=== PATIENT | female | born 1995 | race Caucasian/White ===

== ENCOUNTER 2024-08-22 14:19 | Inpatient (IN) | payer MEDICAID ==
[~2024-08-22] VITALS: Ht 165.1 cm; Wt 86.1 kg
[2024-08-22 15:15] LABS: BASOPHILS % (AUTO) 0.3 % (0-1); EOSINOPHILS % (AUTO) 0.1 % (0-6); HEMATOCRIT 36.6 % (35.0-45.0); HEMOGLOBIN 11.4 g/dl (12.0-16.0); LYMPHOCYTES # (AUTO) 1.5 X10'3 (1.1-4.8); LYMPHOCYTES % (AUTO) 17.8 % (21-51); MEAN CORPUSCULAR HEMOGLOBIN 21.7 PG (27.0-31.0); MEAN CORPUSCULAR HGB CONC 31.2 g/dL (33.0-36.5); MEAN CORPUSCULAR VOLUME 69.3 FL (78-98); MEAN PLATELET VOLUME 8.8 FL (7.4-10.4); MONOCYTES # (AUTO) 0.4 X10'3 (0-0.9); MONOCYTES % (AUTO) 5.2 % (2-12); NEUTROPHILS # (AUTO) 6.5 X10'3 (1.8-7.7); NEUTROPHILS % (AUTO) 76.6 % (42-75); PLATELET COUNT 340 X10'3 (140-440); RED BLOOD COUNT 5.28 X10'6 (4.20-5.60); RED CELL DISTRIBUTION WIDTH 30.4 % (11.5-14.5); WHITE BLOOD COUNT 8.4 X10'3 (4.5-11.0)
[2024-08-22 15:34] LABS: ALANINE AMINOTRANSFERASE 23 U/L (12-78); ALBUMIN 2.5 G/DL (3.4-5.0); ALBUMIN/GLOBULIN RATIO 0.5 (1.1-1.5); ALKALINE PHOSPHATASE 117 IU/L (46-116); ANION GAP 12 (8-16); ASPARTATE AMINO TRANSFERASE 20 U/L (10-37); BILIRUBIN,TOTAL 0.5 MG/DL (0.1-1.0); BLOOD UREA NITROGEN 11 MG/DL (7-18); BUN/CREATININE RATIO 14.9 (10.0-20.0); CALCIUM 8.6 MG/DL (8.5-10.1); CHLORIDE 110 MMOL/L (99-107); CREATININE 0.74 MG/DL (0.40-0.90); GLUCOSE 134 MG/DL (70-104); LIPASE 43 U/L (16-77); POTASSIUM 3.7 MMOL/L (3.5-5.1); SODIUM 145 MMOL/L (135-145); THYROID STIMULATING HORMONE 1.09 ulU/ml (0.34-4.50); TOTAL CARBON DIOXIDE 23.3 MMOL/L (24-32); TOTAL PROTEIN 7.2 G/DL (6.4-8.2); eCRCL 100 ML/MIN; eGFR > 90 ML/MIN
[2024-08-22 15:37] LABS: ETHANOL < 10 MG/DL (<10)
[2024-08-22 16:00] LABS: PLATELET ESTIMATE NORMAL
[2024-08-22 16:01] LABS: ANISOCYTOSIS 3+; ELLIPTOCYTES FEW; HYPOCHROMASIA 2+; MICROCYTOSIS 2+; POLYCHROMASIA FEW; SCHISTOCYTES FEW; TEAR DROP CELLS FEW
[2024-08-22 16:07] LABS: BILIRUBIN,URINE NEGATIVE (Neg); CLARITY,URINE SLIGHTLY CLOUDY (Clear); COLOR,URINE YELLOW (Yellow); GLUCOSE, URINE NEGATIVE (Neg); KETONES,URINE NEGATIVE (Neg); LEUKOCYTE ESTERASE ,URINE TRACE (Neg); NITRITES, URINE NEGATIVE (Neg); OCCULT BLOOD,URINE SMALL (Neg); PROTEIN,URINE NEGATIVE (Neg)
[2024-08-22 16:09] LABS: URINE HCG POSITIVE (NEG)
[2024-08-22 16:12] LABS: UA COLLECTION TYPE CLN CATCH MIDSTREAM
[2024-08-22 16:13] LABS: BACTERIA,URINE FEW /HPF (Neg); MUCUS STRANDS NONE SEEN /LPF (Neg); SQUAMOUS EPITHELIAL CELL,UR FEW /LPF (FEW)
[2024-08-22 16:23] LABS: URINE AMPHETAMINE SCREEN NEGATIVE (Neg); URINE BARBITUATE SCREEN NEGATIVE (Neg); URINE BENZODIAZEPINES SCREEN POSITIVE (Neg); URINE CANNABINOID SCREEN NEGATIVE (Neg); URINE COCAINE SCREEN NEGATIVE (Neg); URINE METHADONE SCREEN NEGATIVE (Neg); URINE OPIATE SCREEN NEGATIVE (Neg); URINE PHENCYCLIDINE SCREEN NEGATIVE (Neg)
[2024-08-22] MEDS: cephalexin 250mg capsule PO ONE (17:02)
[2024-08-22] MEDS: nicotine 14mg patch - 24hr TD ONE (17:19)
[2024-08-22] MEDS: ketorolac trometh 15mg/ml vial 15 MG/ML ML IM ONE ×2 (17:20→22:29)
[2024-08-22] MEDS: LORazepam 1 MG tablet PO ONE (18:12)
[2024-08-22] MEDS: cephalexin 250mg capsule PO SCH (21:11)
[2024-08-23] MEDS: acetaminophen 325mg tablet PO STA (03:21)
[2024-08-23] MEDS: diphenhydrAMINE 25mg capsule PO STA (03:21)
[2024-08-23] MEDS: methadone 10mg tablet PO ONE ×2 (08:00→11:46)
[2024-08-23] MEDS: hydrOXYzine 25 MG tablet PO ONE (10:51)
[2024-08-23] MEDS: ketorolac trometh 30MG/ML vial 30 MG/ML VIAL IM ONE (10:52)
[2024-08-23] MEDS: nicotine 21mg patch - 24 hr TD ONE (18:11)
[2024-08-23] MEDS: diphenhydrAMINE 25mg capsule PO ONE (21:40)
[2024-08-23] MEDS: traZODone 50mg tablet PO STA (23:49)
[2024-08-24] MEDS: methadone 10mg tablet PO ONE (08:06)
[2024-08-24] MEDS ORDERED: methadone 10mg tablet PO SCH (08:07)
[2024-08-24 15:00] VITALS: BP 141/92; PULSE 95; RESP 18; TEMP 98.6; O2SAT 98
[2024-08-24 16:29] VITALS: RESP 18; O2SAT 98
[2024-08-24] MEDS ORDERED: loperamide 2mg capsule PO PRN (17:55)
[2024-08-24] MEDS ORDERED: magnesium hydroxide 30ml (MOM) UD suspension PO PRN (17:55)
[2024-08-24] MEDS ORDERED: mag hydrox/Alum hydrox/simeth 30ml oral suspension PO PRN (17:55)
[2024-08-24] MEDS: nicotine 21mg patch - 24 hr TD SCH (19:10)
[2024-08-24] MEDS: NICOTINE POLACRILEX 2 MG LOZENGE BC PRN (19:45)
[2024-08-24 20:00] VITALS: BP 135/89; PULSE 88; RESP 18; TEMP 98.5; O2SAT 99
[2024-08-24] MEDS: traZODone 50mg tablet PO SCH (21:47)
[2024-08-24] MEDS: hydrOXYzine 25 MG tablet PO PRN (21:48)
[2024-08-25 07:00] VITALS: BP 132/85; PULSE 71; RESP 16; TEMP 97.8; O2SAT 96
[2024-08-25] MEDS: methadone 10mg tablet PO SCH (07:32)
[2024-08-25 09:24] LABS: BASOPHILS % (AUTO) 0.5 % (0-1); EOSINOPHILS % (AUTO) 0.1 % (0-6); HEMATOCRIT 32.9 % (35.0-45.0); HEMOGLOBIN 10.1 g/dl (12.0-16.0); LYMPHOCYTES # (AUTO) 1.6 X10'3 (1.1-4.8); LYMPHOCYTES % (AUTO) 31.3 % (21-51); MEAN CORPUSCULAR HEMOGLOBIN 21.8 PG (27.0-31.0); MEAN CORPUSCULAR HGB CONC 30.6 g/dL (33.0-36.5); MEAN CORPUSCULAR VOLUME 71.3 FL (78-98); MONOCYTES # (AUTO) 0.4 X10'3 (0-0.9); MONOCYTES % (AUTO) 7.3 % (2-12); NEUTROPHILS % (AUTO) 60.8 % (42-75); PLATELET COUNT 236 X10'3 (140-440); RED BLOOD COUNT 4.61 X10'6 (4.20-5.60); RED CELL DISTRIBUTION WIDTH 31.8 % (11.5-14.5)
[2024-08-25 09:47] LABS: ALANINE AMINOTRANSFERASE 15 U/L (12-78); ALBUMIN 2.3 G/DL (3.4-5.0); ALBUMIN/GLOBULIN RATIO 0.6 (1.1-1.5); ALKALINE PHOSPHATASE 78 IU/L (46-116); ANION GAP 6 (8-16); ASPARTATE AMINO TRANSFERASE 15 U/L (10-37); BILIRUBIN,TOTAL 0.4 MG/DL (0.1-1.0); BLOOD UREA NITROGEN 17 MG/DL (7-18); BUN/CREATININE RATIO 27.4 (10.0-20.0); CALCIUM 8.2 MG/DL (8.5-10.1); CHLORIDE 110 MMOL/L (99-107); CHOL/HDL RATIO 5.4 (0.00-4.99); CHOLESTEROL 211 MG/DL (0-200); CREATININE 0.62 MG/DL (0.40-0.90); GLUCOSE 78 MG/DL (70-104); HDL CHOLESTEROL 39 MG/DL (35-60); LDL CHOLESTEROL 130 MG/DL (50-100); SODIUM 143 MMOL/L (135-145); THYROID STIMULATING HORMONE 5.03 ulU/ml (0.34-4.50); TOTAL CARBON DIOXIDE 26.6 MMOL/L (24-32); TOTAL PROTEIN 6.2 G/DL (6.4-8.2); TRIGLYCERIDES 174 MG/DL (20-135); eCRCL 119 ML/MIN; eGFR > 90 ML/MIN
[2024-08-25 09:53] LABS: ANISOCYTOSIS 3+; PLATELET ESTIMATE NORMAL
[2024-08-25 09:54] LABS: BURR CELLS FEW; ELLIPTOCYTES FEW; HYPOCHROMASIA 1+; MICROCYTOSIS 1+; TEAR DROP CELLS 1+
[2024-08-25] MEDS: acetaminophen 325mg tablet PO PRN ×2 (13:24→21:18)
[2024-08-25 19:00] VITALS: RESP 16; O2SAT 100
[2024-08-25 20:00] VITALS: BP 139/89; PULSE 101; RESP 16; TEMP 97.6; O2SAT 100
[2024-08-26 07:00] VITALS: BP 136/81; PULSE 68; RESP 16; TEMP 97.8; O2SAT 97
[2024-08-26] MEDS ORDERED: sertraline 25mg tablet PO SCH (08:00)
[2024-08-26] MEDS: sertraline 50mg tablet PO SCH (08:15)
[2024-08-26 11:28] LABS: BILIRUBIN,URINE NEGATIVE (Neg); CLARITY,URINE SLIGHTLY CLOUDY (Clear); COLOR,URINE YELLOW (Yellow); GLUCOSE, URINE NEGATIVE (Neg); KETONES,URINE NEGATIVE (Neg); LEUKOCYTE ESTERASE ,URINE SMALL (Neg); NITRITES, URINE NEGATIVE (Neg); OCCULT BLOOD,URINE LARGE (Neg); PROTEIN,URINE NEGATIVE (Neg); UROBILINOGEN,URINE 0.2 E.U/dL (0.2-1.0)
[2024-08-26 11:29] LABS: UA COLLECTION TYPE NON-SPECIFIED
[2024-08-26 11:33] LABS: MUCUS STRANDS FEW /LPF (Neg); SQUAMOUS EPITHELIAL CELL,UR MANY /LPF (FEW)
[2024-08-26 11:34] LABS: WBC,URINE 20-30 /HPF (0-4)
[2024-08-26 11:35] LABS: AMORPHOUS PHOSPHATES 1+; BACTERIA,URINE 2+ /HPF (Neg); TRANSITIONAL EPI CELLS,URINE FEW /HPF
[2024-08-26] MEDS: LORazepam 1 MG tablet PO ONE (15:53)
[2024-08-26 19:00] VITALS: RESP 16; O2SAT 96
[2024-08-26 20:00] VITALS: BP 127/87; PULSE 87; RESP 16; TEMP 98.3; O2SAT 96
[2024-08-26] MEDS: cloNIDine 0.1 mg tablet PO SCH (20:45)
[2024-08-27 06:04] LABS: FREE T4 (FREE THYROXINE) 0.83 NG/DL (0.73-1.40)
[2024-08-27 07:00] VITALS: RESP 16
[2024-08-27] MEDS: levoTHYROXINE 25mcg tablet PO SCH (07:57)
[2024-08-27 08:00] VITALS: BP 112/64; PULSE 68; RESP 16; TEMP 97.3; O2SAT 96
[2024-08-27] MEDS: sertraline 50mg tablet PO ONE (13:48)
[2024-08-27] MEDS: ibuprofen tablet 400 MG TABLET PO PRN (14:50)
[2024-08-27] MEDS: methadone 5mg tablet PO ONE (16:33)
[2024-08-27 19:00] VITALS: RESP 15; O2SAT 98
[2024-08-27 19:30] VITALS: BP 123/72; PULSE 101; RESP 15; TEMP 97.9; O2SAT 98
[2024-08-27 21:00] VITALS: PULSE 88
[2024-08-28 07:00] VITALS: RESP 16
[2024-08-28] MEDS: methadone 5mg tablet PO SCH (07:41)
[2024-08-28] MEDS: sertraline 50mg tablet PO SCH (07:42)
[2024-08-28 08:00] VITALS: BP 117/68; PULSE 70; RESP 14; TEMP 97.9; O2SAT 100
[2024-08-28 19:23] VITALS: BP 100/65; PULSE 86; RESP 21; TEMP 96.8; O2SAT 100
[2024-08-28 19:24] VITALS: RESP 21; O2SAT 100
[2024-08-29 07:00] VITALS: BP 119/77; PULSE 62; RESP 16; TEMP 97.2; O2SAT 99
[2024-08-29] MEDS ORDERED: lactose-reduced food (Ensure Enlive) - 237ml bottle PO SCH ×2 (13:00→17:30)
[2024-08-29 13:15] VITALS: BP 113/65; PULSE 78
[2024-08-29] MEDS: lactose-reduced food (Ensure Enlive) - 237ml bottle PO SCH (17:23)
[2024-08-29 19:00] VITALS: BP 115/70; PULSE 91; RESP 16; TEMP 97.3; O2SAT 98
[2024-08-29 19:51] VITALS: O2SAT 98
[2024-08-29 20:00] VITALS: BP 115/70; PULSE 79; TEMP 98.7
[2024-08-29 21:21] LABS: BILIRUBIN,URINE NEGATIVE (Neg); CLARITY,URINE SLIGHTLY CLOUDY (Clear); COLOR,URINE YELLOW (Yellow); GLUCOSE, URINE NEGATIVE (Neg); KETONES,URINE NEGATIVE (Neg); LEUKOCYTE ESTERASE ,URINE NEGATIVE (Neg); NITRITES, URINE NEGATIVE (Neg); OCCULT BLOOD,URINE NEGATIVE (Neg); PROTEIN,URINE NEGATIVE (Neg); UROBILINOGEN,URINE 0.2 E.U/dL (0.2-1.0)
[2024-08-29 21:22] LABS: UA COLLECTION TYPE CLN CATCH MIDSTREAM
[2024-08-29 21:45] LABS: SQUAMOUS EPITHELIAL CELL,UR FEW /LPF (FEW)
[2024-08-29 21:46] LABS: BACTERIA,URINE FEW /HPF (Neg); MUCUS STRANDS MODERATE /LPF (Neg); RBC,URINE 0-2 /HPF (0-2); WBC,URINE 0-4 /HPF (0-4)
[2024-08-30 07:30] VITALS: BP 108/63; PULSE 90; RESP 15; TEMP 96.9; O2SAT 99
[2024-08-30 12:40] VITALS: BP 122/77; PULSE 86
[2024-08-30 19:10] VITALS: RESP 16; O2SAT 100
[2024-08-30 20:00] VITALS: BP 112/70; PULSE 94; RESP 16; TEMP 98.2; O2SAT 100
[2024-08-30] MEDS: hydrOXYzine 25 MG tablet PO SCH (20:49)
[2024-08-31 07:30] VITALS: BP 104/63; PULSE 64; RESP 16; TEMP 97.6; O2SAT 100
[2024-08-31] MEDS: lactose-reduced food (Ensure Enlive) - 237ml bottle PO SCH (07:30)
[2024-08-31 19:00] VITALS: BP 106/58; PULSE 97; RESP 18; TEMP 97.8; O2SAT 98
[2024-09-01 07:00] VITALS: RESP 16; O2SAT 98
[2024-09-01 08:00] VITALS: BP 100/67; PULSE 74; RESP 16; TEMP 97.8; O2SAT 98
[2024-09-01] MEDS: cloNIDine 0.1 mg tablet PO PRN (12:52)
[2024-09-01 19:00] VITALS: RESP 12; O2SAT 97
[2024-09-01 20:00] VITALS: BP 101/58; PULSE 69; RESP 12; TEMP 98.1; O2SAT 97
[2024-09-02 07:00] VITALS: RESP 16; O2SAT 97
[2024-09-02] MEDS: docusate sod 100mg capsule PO SCH (07:21)
[2024-09-02] MEDS ORDERED: docusate sod 100mg capsule PO SCH (08:00)
[2024-09-02 08:01] VITALS: BP 112/60; PULSE 67; RESP 16; TEMP 97; O2SAT 97
[2024-09-02] MEDS ORDERED: NICO-687 TD (14:42)
[2024-09-02] MEDS ORDERED: TRAZ-251 PO (14:42)
[2024-09-02] MEDS ORDERED: LEVO25TA7 PO (14:42)
[2024-09-02] MEDS ORDERED: SERT-433 PO (14:42)
[2024-09-02] MEDS ORDERED: HYDR-3686 PO (14:42)
== END 2024-09-02 16:30 | disposition home or self-care (01) | DRG 561 ==
LOC: ER 14:20 → UNDOADMIN 08-24 12:30 → ED HOLD 08-24 12:30 → ADULT MH 08-24 14:55 → ED HOLD 08-24 14:55 → ADULT MH 08-24 17:45
PROVIDERS: ADMIT Psychiatry & Neurology Psychiatry; ATTEND Psychiatry & Neurology Psychiatry
PROC: GZHZZZZ Group Psychotherapy (ICD-10-PCS; principal; 2024-08-27)
PROC: GZ51ZZZ Individual Psychotherapy, Behavioral (ICD-10-PCS; 2024-08-27)
DX: O99.345 Other mental disorders complicating the puerperium (principal); R45.851 Suicidal ideations; I80.8 Phlebitis and thrombophlebitis of other sites; F53.0 Postpartum depression; O86.20 Urinary tract infection following delivery, unspecified; Z20.822 Contact with and (suspected) exposure to COVID-19; O99.285 Endocrine, nutritional and metabolic diseases complicating the puerperium; N39.0 Urinary tract infection, site not specified; O99.325 Drug use complicating the puerperium; F11.10 Opioid abuse, uncomplicated; E03.9 Hypothyroidism, unspecified; O87.0 Superficial thrombophlebitis in the puerperium; F41.9 Anxiety disorder, unspecified; Z83.3 Family history of diabetes mellitus; Z82.5 Family history of asthma and other chronic lower respiratory diseases
CPT/HCPCS: 36415; 73070; 76856; 80053; 80061; 80305; 80320; 81001; 81025; 83036; 83690; 84439; 84443; 85008; 85025; 87081; 87088; 87811; 93971; 93976; 96372; 99285; A6250; J1885; Q0163; Q0177